=== PATIENT | female | born 1940 | race Caucasian/White ===

== ENCOUNTER → 2024-06-23 09:58 | Outpatient (REF) | payer OTHER, SELFPAY | LOC: RST 09:58 | PROVIDERS: ATTENDING PHYSICIAN Otolaryngology; FAMILY PHYSICIAN Internal Medicine Geriatric Medicine | DX: R13.14 Dysphagia, pharyngoesophageal phase (principal) | CPT/HCPCS: 70486; 74230; 92611 ==